=== PATIENT | female | born 1980 | race American Indian/Alaskan Native ===

== ENCOUNTER 2016-09-14 10:53 | Emergency (ER) | payer SELFPAY ==
[2016-09-14 12:03] LABS: Basophils % (Auto) 0.9 % (0.0-1.8); Eosinophils % (Auto) 2.5 % (0.0-4.3); Hematocrit 38.1 % (30.3-42.9); Hemoglobin 12.4 gm/dl (10.1-14.3); Mean Corpuscular HGB Conc 32 % (30-34); Mean Corpuscular Volume 79 fl (79-97); Platelet Count 325 K/mm3 (140-440); Red Blood Count 4.83 M/mm3 (3.65-5.03); Red Cell Distribution Width 17.3 % (13.2-15.2); White Blood Count 7.2 K/mm3 (4.5-11.0)
[2016-09-14 12:10] LABS: Mean Corpuscular Hemoglobin 26 pg (28-32)
[2016-09-14 12:53] LABS: Anion Gap 19 mmol/L; Blood Urea Nitrogen 10 mg/dL (7-17); Calcium 9.3 mg/dL (8.4-10.2); Carbon Dioxide 23 mmol/L (22-30); Chloride 97.2 mmol/L (98-107); Glucose 92 mg/dL (65-100); Potassium 4.9 mmol/L (3.6-5.0); Sodium 134 mmol/L (137-145)
[2016-09-14] MEDS ORDERED: TORADOL IM ONE (21:08)
[2016-09-14] MEDS ORDERED: ZOFRAN ODT PO ONE (21:08)
[2016-09-14] MEDS ORDERED: ALUM-MAG HYDROX-SIMETH 200-200-20MG/5ML PO ONE (21:09)
[2016-09-14] MEDS ORDERED: PEPCID PO ONE (21:09)
--- NOTE | 2016-09-14 21:09 | Emergency Department Report ---
ED General Adult HPI - General Chief complaint: Chest Pain Stated complaint: CHEST PAIN/SOB/VOMITING Time Seen by Provider: 09/14/16 20:54 Source: patient, EMS (ems notes not available at time of chart dictation), RN notes reviewed Mode of arrival: Ambulatory Limitations: No Limitations - History of Present Illness Initial comments: This is a 36-year-old female. She is previously unknown to me. She does not have a primary care doctor. She has no chronic medical conditions. She reports no family history of heart disease. Does not take control tablets, no cocaine use. The patient presents to the ER complaining of chest wall pain. Chest wall pain is central and left-sided. It does not radiate to the back, arms and neck. It increases with palpation and decreases with rest. The patient reports feeling very stressed out at work. She complains of shortness of breath, but cannot further elaborate on her shortness of breath. There is no leg pain. There is no leg swelling. No recent trips greater than 4 hours. No recent hospital admissions. The patient further reports that she ate some salad a few days ago, and her symptoms started after she ate the salad. After eating the salad, she endorses some nausea, but no vomiting. She reports one episode of loose diarrhea on Tuesday and on Tuesday. She reports that she is not . She does not take control tablets. She denies cough, fever, mucus production. -: Gradual, days(s) Location: chest Radiation: non-radiation Quality: aching Consistency: intermittent Improves with: rest Worsens with: movement Associated Symptoms: chest pain - Related Data Previous Rx's Medication Instructions Recorded Last Taken Type Ketorolac [Toradol] 10 mg PO Q6H PRN #20 tablet 09/14/16 Unknown Rx Ondansetron [Zofran Odt] 4 mg PO QID PRN #20 tab.rapdis 09/14/16 Unknown Rx Allergies Allergy/AdvReac Type Severity Reaction Status Date / Time No Known Allergies Allergy Verified 12/07/13 17:07 ED Review of Systems ROS: Stated complaint: CHEST PAIN/SOB/VOMITING Other details as noted in HPI Constitutional: denies: fever Eyes: denies: vision change ENT: denies: epistaxis Respiratory: shortness of breath Cardiovascular: chest pain Gastrointestinal: denies: abdominal pain Genitourinary: denies: urgency, dysuria Musculoskeletal: denies: back pain Skin: denies: lesions Neurological: weakness Psychiatric: anxiety ED Past Medical Hx - Past Medical History Previous Medical History?: No Additional medical history: vaginal dleivery x 2 - Surgical History Past Surgical History?: No - Social History Smoking Status: Current Every Day Smoker Substance Use Type: Alcohol - Medications Home Medications: Home Medications Medication Instructions Recorded Confirmed Last Taken Type Ketorolac [Toradol] 10 mg PO Q6H PRN #20 tablet 09/14/16 Unknown Rx Ondansetron [Zofran Odt] 4 mg PO QID PRN #20 tab.rapdis 09/14/16 Unknown Rx ED Physical Exam - General Limitations: No Limitations General appearance: alert, in no apparent distress - Head Head exam: Present: atraumatic, normocephalic - Eye Eye exam: Present: normal appearance, EOMI. Absent: nystagmus - ENT ENT exam: Present: normal exam, normal orophraynx, mucous membranes moist, normal external ear exam - Neck Neck exam: Present: normal inspection, full ROM. Absent: tenderness, meningismus - Respiratory Respiratory exam: Present: normal lung sounds bilaterally, chest wall tenderness , other (the bilateral breast exam is unremarkable. There is reproducible anterior chest wall tenderness. In the breast examination, I am escorted by the ER nurse Kelsea Roldan). Absent: respiratory distress, wheezes, rales, rhonchi, stridor - Cardiovascular Cardiovascular Exam: Present: regular rate, normal rhythm, normal heart sounds. Absent: bradycardia, tachycardia, irregular rhythm, systolic murmur, diastolic murmur, rubs, gallop - GI/Abdominal GI/Abdominal exam: Present: soft, normal bowel sounds. Absent: distended, tenderness, guarding, rebound, rigid, pulsatile mass - Extremities Exam Extremities exam: Present: normal inspection, full ROM, normal capillary refill. Absent: tenderness, pedal edema, joint swelling, calf tenderness - Back Exam Back exam: Present: normal inspection, full ROM. Absent: tenderness, CVA tenderness (R), CVA tenderness (L), muscle spasm, paraspinal tenderness, vertebral tenderness - Neurological Exam Neurological exam: Present: alert, oriented X3, normal gait, other (Extraocular movements intact. Tongue midline. No facial droop. Facial sensation intact to light touch in the V1, V2, V3 distribution bilaterally. 5 and 5 strength in 4 extremities.. Sensation is intact to light touch in 4 extremities.). Absent : motor sensory deficit - Psychiatric Psychiatric exam: Present: anxious - Skin Skin exam: Present: warm, dry, intact, normal color. Absent: rash ED Course Vital Signs 09/14/16 09/14/16 09/14/16 11:27 21:10 21:20 Temperature 98.6 F Pulse Rate 72 85 Respiratory 18 17 Rate Blood Pressure 136/88 135/100 135/100 O2 Sat by Pulse 98 Oximetry 09/14/16 09/14/16 09/14/16 21:34 21:40 21:50 Temperature Pulse Rate 88 97 H 78 Respiratory 17 19 17 Rate Blood Pressure 135/100 135/100 128/88 O2 Sat by Pulse Oximetry 09/14/16 09/14/16 22:00 22:17 Temperature Pulse Rate 71 Respiratory 17 18 Rate Blood Pressure 138/82 O2 Sat by Pulse 99 Oximetry - Reevaluation(s) Reevaluation #1: 09/14/16 21:29 Differential diagnosis: Costochondritis, GERD, reflux, pneumonia, acute coronary syndrome, pulmonary embolus, anxiety Assessment and plan: 36-year-old female, who complains of chest pain since Tuesday. Her EKG is essentially morphologically normal 2. Troponins are negative 3. Patient is low risk by JULIET score, low risk by heart score. Case is discussed with the director of admissions revenue liaison, Dr. Membreno, who agrees to see the patient is an outpatient in the next 3 days for outpatient cardiac risk stratification. Given the young age, lack of family history, lack of cocaine use, morphologically normal EKG, negative cardiac enzymes, patient is statistically at low risk for major adverse cardiac event. No pulmonary embolus or DVT risk factors, the patient is low risk by well's criteria, and she is perc negative. Appears to have an anxiety component, no demonstrated episodes of hypoxia in the emergency department, but we will send a d-dimer to risk stratify the patient for pulmonary embolus. In The meantime, she'll be treated symptomatically. Reevaluation #2: 09/14/16 22:46 x-ray of the chest negative. D-dimer negative. Lipase negative. Patient feels improved. Patient will be discharged with instructions to follow up with outpatient cardiology. Return precautions are extensively reviewed. ED Medical Decision Making - Lab Data Result diagrams: 09/14/16 11:50 09/14/16 11:50 Vital Signs 09/14/16 11:27 Temperature 98.6 F Pulse Rate 72 Respiratory 18 Rate Blood Pressure 136/88 O2 Sat by Pulse 98 Oximetry Lab Results 09/14/16 09/14/16 09/14/16 Range/Units 11:50 11:50 14:57 WBC 7.2 (4.5-11.0) K/mm3 RBC 4.83 (3.65-5.03) M/mm3 Hgb 12.4 (10.1-14.3) gm/dl Hct 38.1 (30.3-42.9) % MCV 79 (79-97) fl MCH 26 L (28-32) pg MCHC 32 (30-34) % RDW 17.3 H (13.2-15.2) % Plt Count 325 (140-440) K/mm3 Lymph % (Auto) 19.3 (13.4-35.0) % [place] % (Auto) 6.0 (0.0-7.3) % Eos % (Auto) 2.5 (0.0-4.3) % Baso % (Auto) 0.9 (0.0-1.8) % Lymph # 1.4 (1.2-5.4) K/mm3 [place] # 0.4 (0.0-0.8) K/mm3 Eos # 0.2 (0.0-0.4) K/mm3 Baso # 0.1 (0.0-0.1) K/mm3 Seg Neutrophils % 71.3 H (40.0-70.0) % Seg Neutrophils # 5.2 (1.8-7.7) K/mm3 Sodium 134 L (137-145) mmol/L Potassium 4.9 (3.6-5.0) mmol/L Chloride 97.2 L (98-107) mmol/L Carbon Dioxide 23 (22-30) mmol/L Anion Gap 19 mmol/L BUN 10 (7-17) mg/dL Creatinine 1.0 (0.7-1.2) mg/dL Estimated GFR > 60 ml/min BUN/Creatinine Ratio 10.00 % Glucose 92 (65-100) mg/dL Calcium 9.3 (8.4-10.2) mg/dL Troponin T < 0.010 < 0.010 (0.00-0.029) ng/mL 09/14/16 Range/Units 17:45 WBC (4.5-11.0) K/mm3 RBC (3.65-5.03) M/mm3 Hgb (10.1-14.3) gm/dl Hct (30.3-42.9) % MCV (79-97) fl MCH (28-32) pg MCHC (30-34) % RDW (13.2-15.2) % Plt Count (140-440) K/mm3 Lymph % (Auto) (13.4-35.0) % [place] % (Auto) (0.0-7.3) % Eos % (Auto) (0.0-4.3) % Baso % (Auto) (0.0-1.8) % Lymph # (1.2-5.4) K/mm3 [place] # (0.0-0.8) K/mm3 Eos # (0.0-0.4) K/mm3 Baso # (0.0-0.1) K/mm3 Seg Neutrophils % (40.0-70.0) % Seg Neutrophils # (1.8-7.7) K/mm3 Sodium (137-145) mmol/L Potassium (3.6-5.0) mmol/L Chloride (98-107) mmol/L Carbon Dioxide (22-30) mmol/L Anion Gap mmol/L BUN (7-17) mg/dL Creatinine (0.7-1.2) mg/dL Estimated GFR ml/min BUN/Creatinine Ratio % Glucose (65-100) mg/dL Calcium (8.4-10.2) mg/dL Troponin T < 0.010 (0.00-0.029) ng/mL - EKG Data 09/14/16 21:31 EKG #1 demonstrates normal sinus, 69 bpm, normal intervals, normal axis, borderline left ventricular hypertrophy. EKG #2 demonstrates normal sinus, normal intervals, normal axis, not morphologically consistent with STEMI, T-wave inversion in lead 3, this appears to be new when compared to old EKG. - Radiology Data Radiology results: image reviewed interpreted by me: X-ray the chest is negative for acute disease Critical care attestation.: If time is entered above; I have spent that time in minutes in the direct care of this critically ill patient, excluding procedure time. ED Disposition Clinical Impression: Chest wall pain Disposition: DISCHARGED TO HOME OR SELFCARE Is pt being admited?: No Does the pt Need Aspirin: No Condition: Stable Instructions: Chest Pain (ED), Costochondritis (ED) Additional Instructions: Take the pain medication, nausea medication as directed. Follow-up with any of the listed foreclosure specialist within the next 3-5 days. I specifically discuss your case with the director of admissions on-call, Dr. Membreno, who would be happy to see you in office within the next 2-3 days. Other cardiology specialists include Viv Jaquez and Daniel X-ray the chest was interpreted by myself as negative for acute disease, however her radiologist will provide a formal interpretation within the next 24 hours. Please have a primary care doctor contact the medical records office to obtain x-ray results. Dr. Angel is a local primary care doctor. Return to the ER right away with new pain, worsened pain, migration of pain, fevers or chills, intractable nausea or vomiting, inability to tolerate liquid feeds. Prescriptions: Ketorolac [Toradol] 10 mg PO Q6H PRN #20 tablet PRN Reason: Pain Ondansetron [Zofran Odt] 4 mg PO QID PRN #20 tab.rapdis PRN Reason: Nausea Referrals: PRIMARY CARE, [Primary Care Provider] - 3-5 Days LUPE MEMBRENO MD [Staff Physician] - 3-5 Days LATHA NO MD [Staff Physician] - 3-5 Days BLAYNE MAYER MD [Staff Physician] - 3-5 Days BALDOMERO ANGEL JR, MD [Referring] - 3-5 Days
[2016-09-14 22:11] VITALS: BP 138/82
[2016-09-14 22:22] LABS: INR 1.01 (0.87-1.13)
--- NOTE | 2016-09-15 08:25 | XRay Report ---
ROUTINE CHEST, TWO VIEWS: HISTORY: chest pain. The trachea, heart, mediastinal contour, lung aparicio and bony thorax are unremarkable. IMPRESSION: Unremarkable chest x-ray.
== END 2016-09-14 23:00 | disposition home or self-care (01) ==
LOC: ED 10:53
DX: R07.89 Other chest pain (principal); F17.200 Nicotine dependence, unspecified, uncomplicated
CPT/HCPCS: 36415; 71020; 80048; 83690; 84484; 85025; 85379; 85610; 93005; 93010; 96372; 99285; J1885; Q0162

== ENCOUNTER 2017-12-08 19:52 | Emergency (ER) | payer SELFPAY | END 2017-12-08 20:10 | disposition left against medical advice (07) | LOC: ED 19:52 | DX: Z04.1 Encounter for examination and observation following transport accident (principal); Z53.21 Procedure and treatment not carried out due to patient leaving prior to being seen by health care provider ==

== ENCOUNTER 2018-06-28 21:04 | Emergency (ER) | payer SELFPAY | END 2018-06-28 21:30 | disposition left against medical advice (07) | LOC: ED 21:04 ==

== ENCOUNTER 2019-05-18 08:39 | Emergency (ER) | payer SELFPAY ==
[2019-05-18 08:44] VITALS: BP 149/93
--- NOTE | 2019-05-18 09:33 | Emergency Department Report ---
Chief Complaint: Back Pain/Injury Stated Complaint: BACK PAIN Time Seen by Provider: 05/18/19 09:07 - HPI History of Present Illness: CC: "I think I pulled my back." Mrs. Le is a pleasant 38 yo female who injured her back while bending down at home. She has moderate central lower back pain with tightness. No improvement with aspirin. She ambulates with ease. No bowel/bladder incontinence. No leg weakness. MSE complete. She is discharged with supportive care instruction. No red flags for dangerous causes of back pain such as fever, trauma, drug abuse, advanced age, unintentional weight loss - Exam Vital Signs: Vital Signs 05/18/19 08:42 Temperature 98.2 F Respiratory 16 Rate Blood Pressure 149/93 O2 Sat by Pulse 100 Oximetry MSE screening note: Focused history and physical exam performed. Due to findings the following was ordered: ED Disposition for MSE Condition: Stable Referrals: PRIMARY CARE, [Primary Care Provider] - 3-5 Days
== END 2019-05-18 10:02 | disposition left against medical advice (07) ==
LOC: ED 08:39
DX: M54.5 Low back pain (principal)
CPT/HCPCS: 99282

== ENCOUNTER 2019-05-21 15:50 | Emergency (ER) | payer SELFPAY ==
--- NOTE | 2019-05-21 20:51 | Emergency Department Report ---
Chief Complaint: Back Pain/Injury Stated Complaint: BACK SPASMS Time Seen by Provider: 05/21/19 20:34 - HPI History of Present Illness: Patient is a 38-year-old female presents emergency room stating that she came here on Tuesday (05/18/19) due to low back spasms after bending over quickly. She states that the spasms have significantly improved. But she states that she used a cream and then a heating pad on top of the cream which caused a small area of burn to the lower back. She denies any blistering, fever, drainage. She is ambulatory without difficulty. She denies any fall, injury, numbness, weakness. She denies any past medical history or allergies medications. She states that she just needs a note stating that she can go back to work. And she wanted to know what she could place on her lower back burn. On exam Normal heart sounds, no murmur, no rubs, no gallops Sounds bilaterally without wheezing, rales, rhonchi No spinal or paraspinal tenderness to palpation 4 cm area of erythema/hyperpigmentation to the middle of the lower back, no blistering, no necrosis, no tenderness to palpation, sensation intact, no signs of infection, appears to be mild 1st degree burn Vitals are normal Advised patient to use a triple antibiotic ointment over her lower back Discussed with patient not to use a cream and then a heating pad over it advised pt to never place a heating pad or a ice pack directly in contact with the skin and always use a towel over it Advised never to use more than 10-15 minutes Patient is presenting with a nonmedical emergency at this time Will have patient follow-up with a primary care doctor pt is requesting a note for work - Exam Vital Signs: Vital Signs 05/21/19 17:20 Temperature 98.2 F Pulse Rate 74 Respiratory 18 Rate Blood Pressure 139/80 [Right] O2 Sat by Pulse 100 Oximetry MSE screening note: Focused history and physical exam performed. ED Disposition for MSE Clinical Impression: First degree burn of back Qualifiers: Encounter type: initial encounter Qualified Code(s): T21.14XA - Burn of first degree of lower back, initial encounter Disposition: MED SCREENING EXAM-LEFT Is pt being admited?: No Does the pt Need Aspirin: No Condition: Stable Instructions: Superficial Burn (ED) Additional Instructions: please use a triple antibiotic ointment over her lower back, Do not to use a cream and then a heating pad over it, never place a heating pad or a ice pack directly in contact with the skin and always use a towel over the skin, never to use more than 10-15 minutes. Follow up with a primary care doctor in the next 2-3 days. Return to emergency room for any new or worsening symptoms. Referrals: [facility] [Outside] - 2-3 Days SOCRATES GALEANA MD [Staff Physician] - 2-3 Days Forms: Work/School Release Form(ED) Time of Disposition: 20:51 Print Language: NEPALI
[2019-05-21 21:07] VITALS: BP 159/84
== END 2019-05-21 21:05 | disposition left against medical advice (07) ==
LOC: ED 15:50
DX: T21.14XA Burn of first degree of lower back, initial encounter (principal); X58.XXXA Exposure to other specified factors, initial encounter; Y93.89 Activity, other specified; Y92.89 Other specified places as the place of occurrence of the external cause; Y99.8 Other external cause status

== ENCOUNTER 2020-10-03 07:25 | Emergency (ER) | payer SELFPAY ==
[2020-10-03 07:33] VITALS: BP 153/87
--- NOTE | 2020-10-03 09:35 | Emergency Department Report ---
<ALECIA DOLAN S - Last Filed: 10/03/20 10:56> ED General Adult HPI - General Chief complaint: Eye Problems Stated complaint: BOIL ON FACE/RT EYE PROBLEM Time Seen by Provider: 10/03/20 09:01 - Related Data Previous Rx's Medication Instructions Recorded Last Taken Type Ketorolac [Toradol] 10 mg PO Q6H PRN #20 tablet 09/14/16 Unknown Rx Ondansetron [Zofran Odt] 4 mg PO QID PRN #20 tab.rapdis 09/14/16 Unknown Rx Doxycycline Monohydrate 100 mg PO BID 7 Days tablet 10/03/20 Unknown Rx Allergies Allergy/AdvReac Type Severity Reaction Status Date / Time No Known Allergies Allergy Verified 05/21/19 17:20 ED Past Medical Hx - Medications Home Medications: Home Medications Medication Instructions Recorded Confirmed Last Taken Type Ketorolac [Toradol] 10 mg PO Q6H PRN #20 tablet 09/14/16 Unknown Rx Ondansetron [Zofran Odt] 4 mg PO QID PRN #20 tab.rapdis 09/14/16 Unknown Rx Doxycycline Monohydrate 100 mg PO BID 7 Days tablet 10/03/20 Unknown Rx - I & D Right Eye Type of Procedure: Simple Site: Right Upper eyelid I & D Procedure: betadine prep, sterile drapes applied Progress: There is a fluctuant abscess to the right upper eyelid that is about the size of a half of a golf ball. The area was cleaned with Betadine. A needle incision and drainage was done using an 18-gauge needle and a 6 cc syringe. I was able to draw back about 2 cc of purulence. The needle was removed and pressure was held for cessation of any bleeding. No obvious complications. The patient tolerated the procedure well and reports that she feels improved. ED Medical Decision Making - Medical Decision Making I saw this patient in conjunction with the PAAmanda. The patient has what appears to be an abscess to the right upper eyelid with some cellulitis. The abscess and cellulitis appear to be localized to the right upper eyelid and otherwise there does not appear to be any periorbital cellulitis or edema. She has full range of motion full extraocular range of motion. Pupils are equal reactive to light and accommodation and round. I spoke to an manager loan, Dr. Aarti Dolan, who recommends using stronger antibiotics than was previously prescribed. He feels it is okay to do an incision and drainage given the location on the eyelid. I did a needle I&D as per the procedure section. No significant bleeding and no obvious complications, and the patient expresses relief. The patient will be discharged home on a different oral antibiotic. ED Disposition Clinical Impression: Abscess of right upper eyelid Disposition: DC-01 TO HOME OR SELFCARE Is pt being admited?: No Condition: Stable Instructions: Skin Abscess, [facility] Additional Instructions: Discontinue Keflex. Take Doxycycline with food as directed. Limit prolonged sun exposure while taking this medication. Apply warm compresses to the affected area as needed. The area may continue to drain on its own. Do not attempt to forcefully express drainage from the area. Follow-up with manager loan this week. Call today to schedule an appointment. See referral information below. Return to the emergency department immediately for new or worsening symptoms. Prescriptions: Doxycycline Monohydrate 100 mg PO BID 7 Days tablet Referrals: ISMA VIRGEN MD [Staff Physician] - 3-5 Days LULA LOPEZ MD [Staff Physician] - 3-5 Days MIRIAN PIERCE MD [Staff Physician] - 3-5 Days AARTI DOLAN MD [Staff Physician] - 3-5 Days YARY JACOBSON MD [Staff Physician] - 3-5 Days <AMANDA RIVERO - Last Filed: 10/03/20 14:19> ED General Adult HPI - General Source: patient Mode of arrival: Ambulatory Limitations: No Limitations - History of Present Illness Initial comments: 40-year-old female patient presents to the emergency department with complaints of painful swelling above her right eye starting five days ago. Patient states she was seen by a primary care provider and started on Keflex 500 mg. Since onset, the pain and swelling has significantly worsened. Patient does not wear contact lenses. There was no preceding trauma or injury. No purulent drainage from the eye. Denies fever, chills, cough, congestion, vision changes, headache, neck stiffness, rash. Denies other complaints at this time. ED Review of Systems ROS: Stated complaint: BOIL ON FACE/RT EYE PROBLEM Other details as noted in HPI Other: GENERAL: Negative for fever. ENT: Positive for eye pain/swelling. CARDIOVASCULAR: Negative for chest pain. PULMONARY: Negative for shortness of breath. GASTROINTESTINAL: Negative for abdominal pain. MUSCULOSKELETAL: Negative for back pain. NEUROLOGICAL: Negative for headache. INTEGUMENTARY: Negative for rash. ED Past Medical Hx - Past Medical History Previous Medical History?: Yes Additional medical history: vaginal dleivery x 2 - Surgical History Past Surgical History?: Yes Additional Surgical History: C section - Social History Smoking Status: Current Every Day Smoker ED Physical Exam - General Limitations: No Limitations - Other Other exam information: General: Awake, appropriately interactive, no acute distress. Eyes: PERRL. EOMI. There is an erythematous, fluctuant, localized area of swelling involving the lateral aspect of the right upper eyelid. No purulent drainage. No conjunctival involvement. Pain is not worse with extraocular movement. Neck: Supple. Full range of motion intact. Cardiovascular: Normal peripheral perfusion. Pulmonary: No respiratory distress. Patient is speaking normally without use of accessory muscles. Skin: No apparent rashes or lesions. Neurological: No facial asymmetry. Speech is clear. Follows commands. Patient is alert and oriented. Musculoskeletal: Moves all four extremities spontaneously with normal range of motion. Psych: Cooperative. Appropriate mood and affect. ED Course Vital Signs 10/03/20 07:32 Temperature 98.7 F Pulse Rate 84 Respiratory 14 Rate Blood Pressure 153/87 O2 Sat by Pulse 99 Oximetry ED Medical Decision Making - Medical Decision Making Patient presents emergency department with suspected abscess to the right upper eyelid with overlying cellulitis. Current antibiotic regimen has been ineffective in improving the patient's symptoms. Maintenance Chief was consulted; recommended switching patient from Keflex to Doxycycline. Needle aspiration performed by attending emergency physician. Presentation inconsistent with orbital cellulitis. She denies vision changes. She is afebrile. No clinical indication for further diagnostic work-up on an emergent basis at this time. Patient referred to manager loan for close outpatient follow-up. Patient expressed understanding and is agreeable to plan of care. Strict return precautions provided. Critical care attestation.: If time is entered above; I have spent that time in minutes in the direct care of this critically ill patient, excluding procedure time. ED Disposition Is pt being admited?: No Does the pt Need Aspirin: No Time of Disposition: 09:49
== END 2020-10-03 10:09 | disposition home or self-care (01) ==
LOC: ED 07:25
DX: H00.031 Abscess of right upper eyelid (principal); Z79.899 Other long term (current) drug therapy
CPT/HCPCS: 99281

== ENCOUNTER 2021-07-14 19:19 | Emergency (ER) | payer SELFPAY ==
[2021-07-14 20:48] VITALS: BP 151/88
--- NOTE | 2021-07-15 00:38 | Emergency Department Report ---
HPI - General Chief Complaint: Eye Problems Time Seen by Provider: 07/14/21 23:59 - HPI HPI: Room 32 The patient is a 40-year-old female present with a chief complaint of right eyelid lesion. Patient last week she developed a lesion over her right eyelid. Patient states he went to urgent care facility was started on antibiotic twice daily for 7 days but does not recall the name. Patient states she also use warm compresses but the lesion does not resolved. The patient states she came to this emergency department 1 year ago for the same and had a needle aspiration performed. There is no history of fever. There is no history of preceding trau pr ED Past Medical Hx - Past Medical History Additional medical history: vaginal dleivery x 2 - Surgical History Additional Surgical History: C section - Family History Family history: no significant - Social History Smoking Status: Current Every Day Smoker (1/3 pack/day) Substance Use Type: None (Denies illicit drug) - Medications Home Medications: Home Medications Medication Instructions Recorded Confirmed Last Taken Type Ketorolac [Toradol] 10 mg PO Q6H PRN #20 tablet 09/14/16 Unknown Rx Ondansetron [Zofran Odt] 4 mg PO QID PRN #20 tab.rapdis 09/14/16 Unknown Rx Doxycycline Monohydrate 100 mg PO BID 7 Days tablet 10/03/20 Unknown Rx Ciprofloxacin HCl 500 mg PO BID #14 07/15/21 Unknown Rx HYDROcodone/APAP 5-325 [Holcomb 1 - 2 each PO Q6HR PRN #14 tablet 07/15/21 Unknown Rx 5/325] Sulfamethoxazole/Trimethoprim 1 each PO BID #14 07/15/21 Unknown Rx [Bactrim DS TAB] ED Review of Systems ROS: Stated complaint: BOIL ON EYE Other details as noted in HPI Constitutional: denies: fever Eyes: other (Eyelid pain) ENT: denies: throat pain Respiratory: no symptoms reported Cardiovascular: denies: chest pain Endocrine: no symptoms reported Gastrointestinal: denies: abdominal pain Genitourinary: denies: dysuria Musculoskeletal: denies: back pain Skin: change in color Neurological: denies: headache Physical Exam - Physical Exam Vital Signs: Vital Signs 07/14/21 20:47 Temperature 98.7 F Pulse Rate 70 Respiratory 20 Rate Blood Pressure 151/88 [Right] O2 Sat by Pulse 100 Oximetry Physical Exam: GENERAL: The patient is well-developed well-nourished female sitting in chair not appearing to be in acute distress. [] HEENT: Normocephalic. Atraumatic. Extraocular motions are intact. There is an approximately gumball sized region of fluctuance and tenderness overlying the right eyelid. There is overlying erythema NECK: Supple. Trachea midline CHEST/LUNGS: There is no respiratory distress noted. SKIN: There is an erythematous region of fluctuance overlying the right eyelid (see above) NEURO: The patient is awake, alert, and oriented. The patient is cooperative. The patient has no focal neurologic deficits. The patient has normal speech. GCS 15 MUSCULOSKELETAL: There is no evidence of acute injury. ED Course Vital Signs 07/14/21 20:47 Temperature 98.7 F Pulse Rate 70 Respiratory 20 Rate Blood Pressure 151/88 [Right] O2 Sat by Pulse 100 Oximetry - Procedure Description Procedures done: Needle aspiration - Eye Procedure Alcaine Drops Administered: No Progress: The right eyelid was cleaned with Betadine. Initially attempted to anesthetize with lidocaine 1% however patient continued to move. Subsequently an 18-gauge needle was placed through the same region an approximate 1.5 mL of purulent drainage was aspirated. Patient tolerated well ED Medical Decision Making - Medical Decision Making I initially plan on prescribing the patient doxycycline however the patient states she does not have insurance and needs to make sure her medications are affordable - Differential Diagnosis Stye Critical care attestation.: If time is entered above; I have spent that time in minutes in the direct care of this critically ill patient, excluding procedure time. ED Disposition Clinical Impression: Hordeolum externum (stye) Disposition: HOME / SELF CARE / HOMELESS Is pt being admited?: No Does the pt Need Aspirin: No Condition: Stable Instructions: Stye Additional Instructions: Return to the emergency department should you develop worsening symptoms, inability to tolerate food or liquids, high fever or any other concerns Prescriptions: Sulfamethoxazole/Trimethoprim [Bactrim DS TAB] 1 each PO BID #14 Ciprofloxacin HCl 500 mg PO BID #14 HYDROcodone/APAP 5-325 [Holcomb 5/325] 1 - 2 each PO Q6HR PRN #14 tablet PRN Reason: Pain Referrals: MIRIAN CUELLO MD [Staff Physician] - 3-5 Days (Dr. Cuello is an building construction superintendent. Please follow-up with him for further evaluation) Time of Disposition: :17
== END 2021-07-15 01:30 | disposition home or self-care (01) ==
LOC: ED 19:19
DX: H00.013 Hordeolum externum right eye, unspecified eyelid (principal); F17.200 Nicotine dependence, unspecified, uncomplicated
CPT/HCPCS: 87116; 99282